=== PATIENT | female | born 1950 | race Caucasian/White ===

== ENCOUNTER 2018-02-21 12:53 | Emergency (ER) | payer OTHER ==
--- NOTE | 2018-02-21 13:19 | EDPHY ---
H & P Stated Complaint: ?septic joint r knee/drained at [facility] Time Seen by Provider: 02/21/18 13:01 HPI/ROS: CHIEF COMPLAINT: Possible septic arthritis right knee HISTORY OF PRESENT ILLNESS: 67-year-old immunocompetent, healthy female was seen at [facility] this morning for complaints of atraumatic right knee pain for the past 4 days with associated flu-like symptoms. Right knee arthrocentesis performed by physician at that time and consultation with Dr. Amirah Price who recommend she come to the ER for possible joint washout. Per the patient she was experiencing an erythematous, edematous right knee which has now decreased after 40 cc of hazy straw-colored aspirate. PRIMARY CARE PROVIDER: REVIEW OF SYSTEMS: A ten point review of systems was performed and is negative with the exception of the items mentioned in the HPI PAST MEDICAL & SURGICAL HISTORY: No pertinent medical or surgical history SOCIAL HISTORY: no IV drug use PHYSICAL EXAM (Prior to examination, patient consented to physical exam, hands were washed and my usual and customary physical exam procedures followed) 1) GENERAL: Well-developed, well-nourished, alert and oriented. Appears to be in no acute distress. Smiling appears well 2) HEAD: Normocephalic, atraumatic 3) HEENT: Pupils equal, round, reactive to light bilaterally. Sclera anicteric. 4) NECK: Full range of motion, no meningeal signs. 5) LUNGS: Clear auscultation bilaterally, no wheezes, no rhonchi, no retractions. 6) HEART: Regular rate and rhythm, no murmur, no heave, no gallop. 7) ABDOMEN: No guarding, no rebound, no focal tenderness, negative McBurney's, negative Johnson's, negative Rovsing's, negative peritoneal sign, 8) MUSCULOSKELETAL: Right lower extremity: I have observed the patient ambulating stable steady gait. Visual examination of the knee reveals no visible abnormality. Lateral arthrocentesis site noted with no signs of infection. No overlying signs of cellulitis. Full range of motion which is pain free. She is tender to palpation medial aspect of the right knee. No pain with axial loading of the joint. Distal DP PT pulses present and brisk. 9) BACK: No CVA tenderness, no midline vertebral tenderness, no fluctuance, no step-off, no obvious trauma, no visual or palpable abnormality. 10) SKIN: No rash, no petechiae. 11) Psychiatric: Patient is oriented X 3, there is no agitation. DIFFERENTIAL DIAGNOSIS: In no particular order including but limited to crystal induced arthritis, septic arthritis, osteoarthritis - Personal History Current Tetanus/Diphtheria Vaccine: Yes - Medical/Surgical History Hx Asthma: No Hx Chronic Respiratory Disease: No Hx Diabetes: No Hx Cardiac Disease: No Hx Renal Disease: No Hx Cirrhosis: No Hx Alcoholism: No Hx HIV/AIDS: No Hx Splenectomy or Spleen Trauma: No Other PMH: none - Social History Smoking Status: Never smoked Constitutional: Initial Vital Signs Temperature (C) 36.4 C 02/21/18 12:58 Heart Rate 60 02/21/18 12:58 Respiratory Rate 18 02/21/18 12:58 Blood Pressure 166/78 H 02/21/18 12:58 O2 Sat (%) 98 02/21/18 12:58 O2 Delivery Mode Room Air Allergies/Adverse Reactions: No Known Allergies Allergy (Verified 02/21/18 12:58) Home Medications: Medication Instructions Recorded NK [No Known Home Meds] 01/29/14 Medical Decision Making - Diagnostics Imaging Results: Images reviewed by myself ED Course/Re-evaluation: 1:15 p.m.: I spoke with the [facility] laboratory, the synovial fluid is not in our laboratory at this time. 1:32 p.m.: Phone consultation with Dr. Amirah Price 1:40 p.m.: ER staff has contacted the [facility] laboratory which is currently analyzing the synovial fluid, estimated time 30 min for initial results and Gram stain. Will hold on performing repeat arthrocentesis as I do not think the benefits outweigh the risks. 3:20 p.m.: Consultation with Dr. Amirah Price regarding the patient's synovial fluid showing 16,398 white blood cells. Her synovial fluid analysis combined with her physical exam findings, notably full range of motion, normal white blood cell count, afebrile. Both I and Dr. Amirah Price think that this patient's picture is less than likely secondary to acute septic arthritis. At this time no indication for hospitalization . Plan will be discharge, follow up outpatient with Dr. Amirah Price as well as her PCP as she may necessitate rheumatology follow-up. Usual customary precautions instructions provided. - Data Points Laboratory Results: Laboratory Results 02/21/18 13:22 02/21/18 13:22 Departure - Departure Disposition: Home, Routine, Self-Care Clinical Impression: Right knee pain Qualifiers: Chronicity: acute Qualified Code(s): M25.561 - Pain in right knee Condition: Good Instructions: Knee Pain (ED) Additional Instructions: Return to the ER immediately if you experience discoloration, have worsening pain, numbness, tingling, or any other symptoms that concern you. If you received x-rays in the emergency department today, be advised, that ligamentous , tendon, muscular, and other non-bony injury cannot be fully ruled out. Referrals: Daysi Falk NP [Primary Care Provider] - 1-2 days without fail
[2018-02-21 13:29] LABS: PLATELET COUNT 198 10^3/uL (150-400)
[2018-02-21 15:36] VITALS: BP 132/82
== END 2018-02-21 15:37 | disposition home or self-care (01) ==
DX: G89.18 Other acute postprocedural pain (principal); M25.561 Pain in right knee

== ENCOUNTER → 2018-10-24 | Outpatient (CLI) | payer OTHER, MEDICARE | LOC: BMCIMAGING 13:30 | PROVIDERS: ATTEND Nurse Practitioner Adult Health | DX: Z12.31 Encounter for screening mammogram for malignant neoplasm of breast (principal); Z13.820 Encounter for screening for osteoporosis; M81.0 Age-related osteoporosis without current pathological fracture; Z78.0 Asymptomatic menopausal state ==